=== PATIENT | male | born 1950 | race Caucasian/White ===

== ENCOUNTER 2022-11-20 23:17 | Emergency (ER) | payer MEDICARE, OTHER ==
[~2022-11-20] VITALS: Ht 165.1 cm; Wt 68.0 kg
[2022-11-20 23:24] VITALS: BP 142/77
--- NOTE | 2022-11-20 23:31 | NUR ---
PT OFFLOADED TO LOBBY WITH HIS DAUGHTER
--- NOTE | 2022-11-20 23:31 | NUR ---
PT [facility] BOSS
--- NOTE | 2022-11-20 23:36 | NUR ---
Patient being evaluated by physician
[2022-11-20] MEDS ORDERED: CIPR500T4 PO (23:54)
[2022-11-20] MEDS ORDERED: CIPR500P1 PO (23:57)
[2022-11-21] MEDS ORDERED: CRUSHER, PILL MC ONE (00:05)
[2022-11-21 00:25] VITALS: BP 142/77
--- NOTE | 2022-11-21 00:25 | NUR ---
Written and verbal after care instructions given and explained. Patient alert, oriented and verbalized understanding of instructions. Wheel Chair Assisted with to car. All questions addressed prior to discharge. ID band removed. Patient advised to follow up with PMD. Rx of CIPROFLOXACIN given. Patient educated on indication of medication including possible reaction and side effects. Opportunity to ask questions provided and answered.
--- NOTE | 2022-11-21 00:25 | NUR ---
Patient discharged with v/s stable. Written and verbal after care instructions given and explained. Patient alert, oriented and verbalized understanding of instructions. Wheel Chair Assisted with to car. All questions addressed prior to discharge. ID band removed. Patient advised to follow up with PMD. Rx of CIPRO given. Patient educated on indication of medication including possible reaction and side effects. Opportunity to ask questions provided and answered.
== END 2022-11-21 00:25 | disposition home or self-care (01) ==
LOC: MED 23:17
DX: R23.2 Flushing (principal); T36.1X5A Adverse effect of cephalosporins and other beta-lactam antibiotics, initial encounter; I10 Essential (primary) hypertension; E11.40 Type 2 diabetes mellitus with diabetic neuropathy, unspecified; F03.90 Unspecified dementia, unspecified severity, without behavioral disturbance, psychotic disturbance, mood disturbance, and anxiety; Z79.4 Long term (current) use of insulin; Z79.899 Other long term (current) drug therapy; Z88.8 Allergy status to other drugs, medicaments and biological substances; Y92.89 Other specified places as the place of occurrence of the external cause
CPT/HCPCS: 99283; Q0163

== ENCOUNTER 2023-08-22 15:17 | Emergency (ER) | payer MEDICARE, OTHER ==
[~2023-08-22] VITALS: Ht 172.7 cm; Wt 72.6 kg
[~2023-08-22 15:17] MED LIST: CIPR500P1 PO
[2023-08-22 15:24] VITALS: BP 159/84; PULSE 98; RESP 18; TEMP 98.2; O2SAT 98
[2023-08-22 16:05] VITALS: O2SAT 98
[2023-08-22 16:32] LABS: BLOOD GAS PCO2 40.5 mmHg (35-45); BLOOD GAS PH 7.446 (7.35-7.45)
[2023-08-22 16:33] LABS: BLOOD GAS HCO3 27.3 mmol/L (22-26); BLOOD GAS O2 SAT% 95.8 % (92.0-98.5); BLOOD GAS PO2 81.1 mmHg (75-100)
[2023-08-22 16:57] LABS: BASOPHILS % (AUTO) 0.3 % (0.0-2.0); EOSINOPHILS # (AUTO) 0.3 K/uL (0-0.4); EOSINOPHILS % (AUTO) 2.4 % (0.0-4.0); HEMATOCRIT 39.2 % (36-52); HEMOGLOBIN 13.3 g/dL (12.0-18.0); LYMPHOCYTES # (AUTO) 0.9 K/uL (2.0-11.5); LYMPHOCYTES % (AUTO) 8.1 % (20.5-51.1); MEAN CORPUSCULAR HEMOGLOBIN 31 pg (27-31); MEAN CORPUSCULAR HGB CONC 34 g/dL (33-37); MONOCYTES # (AUTO) 0.6 K/uL (0.8-1.0); MONOCYTES % (AUTO) 5.9 % (1.7-9.3); NEUTROPHILS # (AUTO) 8.7 K/uL (1.8-7.7); NEUTROPHILS % (AUTO) 83.3 % (42.2-75.2); PLATELET COUNT (AUTO) 133 K/uL (140-450); RED BLOOD CELL COUNT(AUTO) 4.31 MIL/uL (4.20-6.10); RED CELL DISTRIBUTION WIDTH 14.1 % (11.6-13.7); WHITE BLOOD COUNT (AUTO) 10.5 K/uL (4.8-10.8)
[2023-08-22 17:15] LABS: ALANINE AMINOTRANSFERASE 11 U/L (12-78); ALBUMIN 3.5 g/dL (3.4-5.0); ALKALINE PHOSPHATASE 122 U/L (50-136); ANION GAP 11.1 (8-16); ASPARTATE AMINOTRANSFERASE 14 U/L (15-37); CALCIUM 9.3 mg/dL (8.5-10.1); CHLORIDE 104 mmol/L (98-107); CREATININE 1.1 mg/dL (0.6-1.3); GLUCOSE 149 mg/dL (74-106); POTASSIUM 4.1 mmol/L (3.5-5.1); SODIUM SERUM 139 mmol/L (136-145); TOTAL BILIRUBIN 0.9 mg/dL (0.0-1.0); TOTAL PROTEIN, SERUM 7.1 g/dL (6.4-8.2); UREA NITROGEN, BLOOD 11 mg/dL (7-18)
[2023-08-22 17:18] LABS: INR 1.04 (0.8-1.2); LACTIC ACID 1.4 mmol/L (0.4-2.0); PARTIAL THROMBOPLASTIN TIME 30.5 secs (22-35.6); PROTHROMBIN TIME 10.9 secs (10.8-13.4)
[2023-08-22 17:19] LABS: CREATINE KINASE, TOTAL 122 U/L (39-308)
[2023-08-22 18:29] LABS: FLU A ANTIGEN negative (NEGATIVE); FLU B ANTIGEN NEGATIVE (NEGATIVE)
[2023-08-22 18:38] VITALS: O2SAT 95
[2023-08-22 18:39] LABS: APPEARANCE,URINE CLEAR (CLEAR); BILIRUBIN,URINE NEGATIVE (NEGATIVE); BLOOD, URINE NEGATIVE (NEGATIVE); COLOR,URINE YELLOW (YELLOW); LEUKOCYTE ESTERASE ,URINE TRACE (NEGATIVE); NITRITE, URINE NEGATIVE (NEGATIVE); PROTEIN,URINE NEGATIVE (NEGATIVE); UGLUCOSE NEGATIVE (NEGATIVE); UROBILINOGEN,URINE 0.2 EU/dL (0.2 - 1)
[2023-08-22 18:46] LABS: BACTERIA,URINE FEW /HPF (None Seen); RBC,URINE 0-5 /HPF (0-5); SQUAMOUS EPITHELIAL CELL,UR 0-3 (FEW) /LPF (0-3 (FEW))
[2023-08-22] MEDS ORDERED: CIPROFLOXACIN 250 MG TAB ONE (19:21)
[2023-08-22] MEDS: COMMUNICATION ORDER MC ONE (19:43)
[2023-08-22 21:21] VITALS: O2SAT 97
[2023-08-22 22:24] VITALS: BP 143/72; PULSE 84; RESP 18; TEMP 99.2; O2SAT 95
== END 2023-08-22 22:24 | disposition short-term general hospital (02) ==
LOC: MED 15:17
DX: N39.0 Urinary tract infection, site not specified (principal); Z20.822 Contact with and (suspected) exposure to COVID-19; R26.89 Other abnormalities of gait and mobility; F03.90 Unspecified dementia, unspecified severity, without behavioral disturbance, psychotic disturbance, mood disturbance, and anxiety; E11.9 Type 2 diabetes mellitus without complications; I10 Essential (primary) hypertension; Z79.4 Long term (current) use of insulin; Z79.899 Other long term (current) drug therapy; Z88.8 Allergy status to other drugs, medicaments and biological substances
CPT/HCPCS: 36415; 36600; 70450; 71045; 80053; 81001; 82550; 82803; 83605; 83880; 84484; 85025; 85610; 85730; 87040; 87086; 87426; 87804; 93005; 99285; Q0092

== ENCOUNTER 2023-09-05 22:24 | Emergency (ER) | payer MEDICARE, OTHER ==
[~2023-09-05] VITALS: Ht 165.1 cm; Wt 68.0 kg
[2023-09-05 22:40] VITALS: BP 143/77; PULSE 84; RESP 16; TEMP 98.5; O2SAT 99
[2023-09-06 03:48] LABS: BASOPHILS % (AUTO) 0.4 % (0.0-2.0); EOSINOPHILS # (AUTO) 0.2 K/uL (0-0.4); EOSINOPHILS % (AUTO) 1.9 % (0.0-4.0); HEMATOCRIT 34.5 % (36-52); HEMOGLOBIN 11.6 g/dL (12.0-18.0); LYMPHOCYTES # (AUTO) 0.9 K/uL (2.0-11.5); LYMPHOCYTES % (AUTO) 7.1 % (20.5-51.1); MEAN CORPUSCULAR HEMOGLOBIN 30 pg (27-31); MEAN CORPUSCULAR HGB CONC 34 g/dL (33-37); MEAN CORPUSCULAR VOLUME 90.4 fL (80-94); MONOCYTES # (AUTO) 0.8 K/uL (0.8-1.0); MONOCYTES % (AUTO) 6.2 % (1.7-9.3); NEUTROPHILS # (AUTO) 10.7 K/uL (1.8-7.7); NEUTROPHILS % (AUTO) 84.4 % (42.2-75.2); PLATELET COUNT (AUTO) 142 K/uL (140-450); RED BLOOD CELL COUNT(AUTO) 3.81 MIL/uL (4.20-6.10); RED CELL DISTRIBUTION WIDTH 13.9 % (11.6-13.7); WHITE BLOOD COUNT (AUTO) 12.7 K/uL (4.8-10.8)
[2023-09-06 04:04] LABS: ANION GAP 10.7 (8-16); CALCIUM 8.2 mg/dL (8.5-10.1); CARBON DIOXIDE 28.1 mmol/L (21-32); CHLORIDE 105 mmol/L (98-107); GLUCOSE 151 mg/dL (74-106); POTASSIUM 3.8 mmol/L (3.5-5.1); SODIUM SERUM 140 mmol/L (136-145); UREA NITROGEN, BLOOD 14 mg/dL (7-18)
[2023-09-06 04:05] LABS: ALANINE AMINOTRANSFERASE 4 U/L (12-78); ALBUMIN 2.8 g/dL (3.4-5.0); ALKALINE PHOSPHATASE 102 U/L (50-136); ASPARTATE AMINOTRANSFERASE 13 U/L (15-37); TOTAL BILIRUBIN 0.7 mg/dL (0.0-1.0); TOTAL PROTEIN, SERUM 6.5 g/dL (6.4-8.2)
[2023-09-06] MEDS ORDERED: LID5T TP (04:28)
[2023-09-06 05:10] VITALS: BP 143/77; PULSE 84; RESP 16; TEMP 98.5; O2SAT 99
== END 2023-09-06 05:10 | disposition home or self-care (01) ==
LOC: MED 22:24
DX: M25.562 Pain in left knee (principal); F03.90 Unspecified dementia, unspecified severity, without behavioral disturbance, psychotic disturbance, mood disturbance, and anxiety; I10 Essential (primary) hypertension; E11.9 Type 2 diabetes mellitus without complications; Z86.73 Personal history of transient ischemic attack (TIA), and cerebral infarction without residual deficits; Z79.4 Long term (current) use of insulin; Z79.899 Other long term (current) drug therapy; Z88.8 Allergy status to other drugs, medicaments and biological substances
CPT/HCPCS: 36415; 73560; 80053; 85025; 99284